=== PATIENT | female | born 1990 | race Caucasian/White ===

== ENCOUNTER → 2017-01-13 | Outpatient (CLI) | payer MEDICARE ==
[2015-10-24 12:45] VITALS: BP 119/66
--- NOTE | 2017-01-13 10:03 | KCIC ---
EXAM: Abdomen sonogram. HISTORY: Right upper quadrant pain. TECHNIQUE: Sonographic imaging of the abdomen was performed. COMPARISON: None. FINDINGS: The liver is normal in size. No focal hepatic lesion is seen. The common bile duct is normal in caliber. The gallbladder is unremarkable. The right kidney is unremarkable. The pancreas, inferior vena cava and aorta are partially obscured due to bowel gas. There is a gravid uterus containing a fetus with a heart rate of 136 bpm. There is an anterior placenta. IMPRESSION: 1. Unremarkable abdomen sonogram, with limited motion of the pancreas, aorta and inferior vena cava due to bowel gas. 2. Intrauterine fetus with a heart rate of 136 bpm, not formally assessed on the current exam. Electronically signed by: Nadira Knowles MD (01/13/2017 9:58 AM)
== END | disposition home or self-care (01) ==
LOC: KCIC US 08:58
PROVIDERS: ATTEND Obstetrics & Gynecology
DX: O26.893 Other specified pregnancy related conditions, third trimester (principal); R10.11 Right upper quadrant pain; Z3A.28 28 weeks gestation of pregnancy
CPT/HCPCS: 76705

== ENCOUNTER 2020-03-13 11:00 | Emergency (ER) | payer MEDICARE, MEDICAID ==
[~2020-03-13] VITALS: Ht 152.4 cm; Wt 47.0 kg
[2020-03-13 11:55] LABS: BILIRUBIN,URINE NEGATIVE (NEG); CLARITY,URINE CLOUDY; COLOR,URINE YELLOW; NITRITE,URINE POSITIVE (NEG); PH,URINE 7.5 (<5.0-8.0); PROTEIN,URINE NEGATIVE (NEG-TRACE); UROBILINOGEN,URINE 0.2 mg/dL (0.2 mg/dL)
[2020-03-13] MEDS ORDERED: cefTRIAXone IM 250 MG VIAL IM ONE (12:00)
[2020-03-13] MEDS ORDERED: AZITHROMYCIN 250 MG TABLET. PO ONE (12:00)
[2020-03-13] MEDS ORDERED: MULTIVIT INFUSN,ADULT 4,VIT K 10 ML, THIAMINE INJ 100 MG, FOLIC ACID INJ 1 MG in IV NOR... IV ONE (12:00)
[2020-03-13] MEDS ORDERED: ONDANSETRON PF 4 MG/2 ML VIAL. IV ONE (12:00)
[2020-03-13 12:03] LABS: BARBITURATES NEG (NEG); BENZODIAZEPINES NEG (NEG); CANNABINOIDS NEG (NEG); COCAINE NEG (NEG); METHADONE NEG (NEG); OPIATES NEG (NEG); PHENCYCLIDINE NEG (NEG)
[2020-03-13 12:04] LABS: AMPHETAMINE/METHAMPHETAMINE POS (NEG)
[2020-03-13 12:06] LABS: BACTERIA,URINE MANY /HPF (0-FEW); SQUAMOUS EPITHELIAL CELL,UR MOD /LPF
--- NOTE | 2020-03-13 12:34 | PHYS DOC ---
Past Medical History Past Medical History: Alcoholism, Other Additional Past Medical Histor: IV meth use Past Surgical History: No Surgical History, Additional Past Surgical Histo: Smoking Status: Current Every Day Smoker Alcohol Use: None Drug Use: Methamphetamine Social History Narrative: LAST USE YESTRDAY General Adult EDM: Chief Complaint: WITHDRAWL HPI: HPI: Patient is a 30 year old female who presents to the emergency department with complaints of being in withdrawal from methamphetamines and alcohol. Patient states that her symptoms are nausea, an intermittent headache, and feeling like her muscles are twitching. She reports that [facility] and was sent here to be evaluated. She reports that she last drank heavily on the evening of the and last ate some meth at 6:00 on March 122019. She also reports concerns of sexually transmitted infections consisting of gonorrhea and syphilis. Patient states that she recently had unprotected intercourse with a man who told him that he had both of these conditions. She denies any rashes, dysuria, hematuria, low back pain, or increased urinary frequency. She states she has had some irregular vaginal discharge but denies any vaginal odor or vaginal bleeding. She denies any pain at this time. Review of Systems: Review of Systems: Constitutional: Denies fever or chills. [] HENT: Denies nasal congestion or sore throat. [] Respiratory: Denies cough or shortness of breath. [] Cardiovascular: Denies chest pain or edema. [] GI: Denies abdominal pain, vomiting, or diarrhea; see HPI : Denies dysuria; see HPI. [] Musculoskeletal: Denies back pain or joint pain; see HPI. [] Integument: Denies rash. [] Neurologic: Denies headache, focal weakness or sensory changes. [] Psychiatric: Denies depression or anxiety. [] Heart Score: Risk Factors: Risk Factors: DM, Current or recent (<one month) smoker, HTN, HLP, family history of CAD, obesity. Risk Scores: Score 0 - 3: 2.5% MACE over next 6 weeks - Discharge Home Score 4 - 6: 20.3% MACE over next 6 weeks - Admit for Clinical Observation Score 7 - 10: 72.7% MACE over next 6 weeks - Early Invasive Strategies Current Medications: Current Medications Medications (Trade) Dose Ordered Sig/Kaitlynn Start Time Stop Time Status Last Admin Dose Admin Azithromycin (Zithromax) 1,000 mg 1X ONCE 03/13/20 12:00 03/13/20 12:10 DC Ceftriaxone Sodium (Rocephin Im) 250 mg 1X ONCE 03/13/20 12:00 03/13/20 12:10 DC Multivitamins 10 ml/Thiamine HCl 100 mg/Folic Acid 1 mg/Sodium Chloride 1,011.2 ml @ 1,000.088 mls/hr 1X ONCE 03/13/20 12:00 03/13/20 13:00 Ondansetron HCl (Zofran) 4 mg 1X ONCE 03/13/20 12:00 03/13/20 12:10 DC Allergies: Allergies: Allergies Coded Allergies Type Severity Reaction Last Updated Verified acetaminophen Allergy Intermediate 10/24/15 Yes haloperidol Allergy Intermediate 10/24/15 Yes hydrocodone Allergy Intermediate 10/24/15 Yes Physical Exam: PE: Constitutional: Well developed, well nourished, no acute distress, non-toxic appearance. HENT: Normocephalic, atraumatic, bilateral external ears normal, nose normal; dry mucous membranes Eyes: PERRLA, EOMI, conjunctiva normal, no discharge. Neck: Normal range of motion, no stridor. Cardiovascular: Heart rate regular rhythm Lungs & Thorax: Respirations even and unlabored, no retractions, no respiratory distress, lungs clear throughout all angel Pelvic Exam: Slunk Skinner present Tayler MCKINNEY Abdomen: Nontender, soft External Genitalia: Normal Skin Speculum: Normal vaginal mucosa, thick white cervical discharge Bimanual: No adnexal masses or tenderness, No CMT Skin: Warm, dry, no erythema, no rash. Extremities: No cyanosis, ROM intact, no edema. Neurologic: Alert and oriented X 3, no focal deficits noted. Psychologic: Affect normal, judgement normal, mood anxious Current Patient Data: Labs: Laboratory Tests Test 03/13/20 11:13 03/13/20 11:20 Urine Collection Type Unknown Urine Color Yellow Urine Clarity Cloudy Urine pH 7.5 (<5.0-8.0) Urine Specific [place] 1.010 (1.000-1.030) Urine Protein Negative mg/dL (NEG-TRACE) Urine Glucose (UA) Negative mg/dL (NEG) Urine Ketones (Stick) Negative mg/dL (NEG) Urine Blood Negative (NEG) Urine Nitrite Positive (NEG) Urine Bilirubin Negative (NEG) Urine Urobilinogen Dipstick 0.2 mg/dL (0.2 mg/dL) Urine Leukocyte Esterase Small (NEG) Urine RBC 1-2 /HPF (0-2) Urine WBC 11-20 /HPF (0-4) Urine Squamous Epithelial Cells Mod /LPF Urine Bacteria Many /HPF (0-FEW) Urine Opiates Screen Neg (NEG) Urine Methadone Screen Neg (NEG) Urine Barbiturates Neg (NEG) Urine Phencyclidine Screen Neg (NEG) Urine Amphetamine/Methamphetamine Pos (NEG) Urine Benzodiazepines Screen Neg (NEG) Urine Cocaine Screen Neg (NEG) Urine Cannabinoids Screen Neg (NEG) Urine Ethyl Alcohol Neg (NEG) POC Urine HCG, Qualitative Hcg negative (Negative) Vital Signs: Vital Signs Date Time Temp Pulse Resp B/P (MAP) Pulse Ox O2 Delivery O2 Flow Rate FiO2 03/13/20 11:15 98.3 95 18 111/81 (91) 99 Room Air 98.3 EKG: EKG: [] Radiology/Procedures: Radiology/Procedures: [] Course & Med Decision Making: Course & Med Decision Making Pertinent Labs and Imaging studies reviewed. (See chart for details) 30-year-old female presents to the emergency department with concerns of a sexually transmitted infection, methamphetamine withdrawal symptoms, and alcohol withdrawal symptoms. Work-up included labs, IV fluids, Ativan, and a pelvic exam. CBC is unremarkable, CMP reveals a magnesium of 2.56 and total protein of 8.3 otherwise unremarkable; UA is positive for nitrites, 11-20 white blood cells, and many bacteria; UDS is positive for amphetamines otherwise unremarkable; alcohol level is less than 10, salicylate and acetaminophen levels are negative. Patient was given a banana bag, 1 mg of Ativan IV, and 4 mg of Zofran. She reported feeling better after these medications. Patient was treated prophylactically with 250 mg of IM Rocephin, and 1 g of PO Zithromax. Patient was instructed to avoid having intercourse until the results of gonorrhea and chlamydia testing are available, patient was notified that these results would not be available for 48 hours. If one or both of these tests is positive, patient needs to refrain from intercourse for approximately 1 week following the treatment of any current partners. Prescriptions written for Keflex 500 mg p.o. twice daily x7 days for treatment of urinary tract infection and Flagyl 500 mg p.o. twice daily x7 days for treatment of bacterial vaginosis. Patient discharged back to [facility] for drug and alcohol rehabilitation. Patient verbalized an understanding of home care, medications, follow-up, and return to ED instructions and was in agreement with the plan of care. [] Toi Disclaimer: Dragon Disclaimer: This electronic medical record was generated, in whole or in part, using a voice recognition dictation system. Departure Departure Impression: Primary Impression: Withdrawal from methamphetamine Additional Impressions: UTI (urinary tract infection) Qualified Codes: N39.0 - Urinary tract infection, site not specified Alcohol withdrawal Qualified Codes: F10.230 - Alcohol dependence with withdrawal, uncomplicated Bacterial vaginosis Contact with and (suspected) exposure to infections with a predominantly sexual mode of transmission Disposition: HOME, SELF-CARE Condition: STABLE Referrals: UNKNOWN PCP NAME (PCP) Patient Instructions: Alcohol Withdrawal, [id number], Bacterial Vaginosis, [id number], Methamphetamine Abuse, Complications, Sexually Transmitted Disease, [id number], Urinary Tract Infection, [id number] Additional Instructions: Fill prescription(s) and use as directed. Avoid bladder irritants such as caffeine, carbonation, and spicy foods. Increase clear fluids. I recommend that you go to your local health department for comprehensive sexually transmitted disease testing. You have been treated for a suspected gonorrhea and chlamydia. Avoid having intercourse until the results of gonorrhea and chlamydia testing are available, these results will not be available for 48 hours. If one or both of these tests is positive, you need to refrain from intercourse for approximately 1 week following the treatment of any current partners. Follow-up with your primary care doctor if symptoms persist, return to ER if symptoms worsen. Scripts Cephalexin (KEFLEX) 500 Mg Capsule 500 MG PO BID for 7 Days, #14 CAP 0 Refills Prov: JED MORENO APRN 03/13/20 Metronidazole (FLAGYL) 500 Mg Tablet 1 TAB PO BID, #14 TAB 0 Refills Prov: JED MORENO APRN 03/13/20 Justicifation of Admission Dx: Justifications for Admission: Justification of Admission Dx: N/A JED MORENO STRUCTURAL IRON ERECTOR Mar 13, 2020 12:34
[2020-03-13 13:30] LABS: BASO # 0.1 x10^3/uL (0.0-0.2); BASO % 1 % (0-3); EOS # 0.7 x10^3/uL (0.0-0.7); EOS % 6 % (0-3); HEMATOCRIT 43.1 % (36.0-47.0); HEMOGLOBIN 14.4 g/dL (12.0-15.5); LYMPH # 3.5 x10^3/uL (1.0-4.8); LYMPH % 28 % (24-48); MEAN CORPUSCULAR HEMOGLOBIN 31 pg (25-35); MEAN CORPUSCULAR HGB CONC 33 g/dL (31-37); MEAN CORPUSCULAR VOLUME 92 fL (79-100); MONO # 0.9 x10^3/uL (0.0-1.1); MONO % 8 % (0-9); NEUT # 7.4 x10^3/uL (1.8-7.7); NEUT % 58 % (31-73); PLATELET COUNT 556 x10^3/uL (140-400); RED BLOOD COUNT 4.71 x10^6/uL (3.50-5.40); WHITE BLOOD COUNT 12.7 x10^3/uL (4.0-11.0)
[2020-03-13 13:49] LABS: CALCIUM 9.9 mg/dL (8.5-10.1); CREATININE 0.8 mg/dL (0.6-1.0); GFR 83.1; POTASSIUM 4.8 mmol/L (3.5-5.1)
[2020-03-13 13:52] LABS: ACETAMIN < 2 mcg/ml (10-30); ETHANOL < 10 mg/dL (0-10); SALIC < 2.8 mg/dL (2.8-20.0)
[2020-03-13 13:54] LABS: ALBUMIN 4.1 g/dL (3.4-5.0); MAGNESIUM 2.5 mg/dL (1.8-2.4); TOTAL BILIRUBIN 0.9 mg/dL (0.2-1.0); TOTAL PROTEIN 8.3 g/dL (6.4-8.2)
[2020-03-13] MEDS ORDERED: cefTRIAXone IV Push 1 GM VIAL. IVP ONE (15:00)
[2020-03-13] MEDS ORDERED: CEPH-264 PO (15:40)
[2020-03-13] MEDS ORDERED: METR500T PO (15:40)
[2020-03-13 16:10] VITALS: BP 107/65
[2020-03-16 23:08] LABS: GC PROBE Negative (Negative)
== END 2020-03-13 16:10 | disposition home or self-care (01) ==
LOC: ER 11:00
DX: F15.93 Other stimulant use, unspecified with withdrawal (principal); F10.239 Alcohol dependence with withdrawal, unspecified; N39.0 Urinary tract infection, site not specified; Y90.0 Blood alcohol level of less than 20 mg/100 ml; N76.0 Acute vaginitis; B96.89 Other specified bacterial agents as the cause of diseases classified elsewhere; F17.200 Nicotine dependence, unspecified, uncomplicated; Z88.5 Allergy status to narcotic agent; Z88.6 Allergy status to analgesic agent; Z88.8 Allergy status to other drugs, medicaments and biological substances
CPT/HCPCS: 36415; 80053; 80307; 80329; 81001; 81025; 83735; 85025; 86592; 87086; 87491; 87591; 96365; 96372; 96375; 99285; G0480; J0696; J2060; J2405; J3411; J3490; J7030; Q0111

== ENCOUNTER 2020-04-16 10:48 | Emergency (ER) | payer MEDICARE, MEDICAID ==
[~2020-04-16] VITALS: Ht 152.4 cm; Wt 55.0 kg
[~2020-04-16 10:48] MED LIST: CEPH-264 PO; METR500T PO
[2020-04-16 11:13] VITALS: BP 105/58
[2020-04-16] MEDS ORDERED: NAPR-514 PO (11:31)
[2020-04-16] MEDS ORDERED: LORA0.5T96 PO (11:31)
[2020-04-16] MEDS ORDERED: PENI500T PO (11:31)
--- NOTE | 2020-04-16 11:32 | PHYS DOC ---
Past Medical History Past Medical History: Alcoholism, Anxiety, Other Additional Past Medical Histor: IV meth use, PTSD Past Surgical History: No Surgical History, Additional Past Surgical Histo: Smoking Status: Current Every Day Smoker Alcohol Use: None Drug Use: Methamphetamine Social History Narrative: hx of methamphetamine use General Adult EDM: Chief Complaint: DENTAL PROBLEM HPI: HPI: Patient is a 30 year old female who presents to the emergency department with complaints of increased dental pain in the right upper quadrant since last night. Patient reports a history of dental caries and broken teeth in this area. She denies any fever, dental abscess, drainage, facial swelling, fever, nausea, or vomiting. The patient also complains of having increased problems with her anxiety recently. She has been staying at [facility] for over 30 days for drug and alcohol program and recently received her sentence for legal troubles. Patient states she has been having a lot of anxiety over the last 24 hours as a result of this. Patient states in the past she is taking Ativan and that helps to reduce her anxiety. She requested a prescription for Ativan. She denies any suicidal or homicidal ideations. She denies any recent exposure to anyone with known COVID. Patient states she is also had some nasal congestion for the last few weeks. She currently rates her pain a 10 out of 10 on the pain scale, she denies any alleviating or exacerbating factors. Review of Systems: Review of Systems: Constitutional: Denies fever or chills. [] HENT: Reports nasal congestion; see HPI Respiratory: Denies cough or shortness of breath. [] Musculoskeletal: Denies back pain or joint pain. [] Integument: Denies rash. [] Neurologic: Denies headache Psychiatric: Denies depression or anxiety. [] Heart Score: Risk Factors: Risk Factors: DM, Current or recent (<one month) smoker, HTN, HLP, family history of CAD, obesity. Risk Scores: Score 0 - 3: 2.5% MACE over next 6 weeks - Discharge Home Score 4 - 6: 20.3% MACE over next 6 weeks - Admit for Clinical Observation Score 7 - 10: 72.7% MACE over next 6 weeks - Early Invasive Strategies Allergies: Allergies: Allergies Coded Allergies Type Severity Reaction Last Updated Verified acetaminophen Allergy Intermediate 10/24/15 Yes haloperidol Allergy Intermediate 10/24/15 Yes hydrocodone Allergy Intermediate 10/24/15 Yes Physical Exam: PE: Constitutional: Well developed, well nourished, no acute distress, non-toxic appearance, anxious. [] HENT: Normocephalic, atraumatic, bilateral external ears normal, oropharynx moist, nose normal; posterior molars in the right upper quadrant have diffuse decay, no visible or palpable dental abscess, no gingival edema; mild erythema of the gingiva in the posterior right upper quadrant Eyes: PERRLA, EOMI, conjunctiva normal, no discharge. [] Neck: Normal range of motion, supple, no stridor. [] Cardiovascular:Heart rate regular rhythm Lungs & Thorax: Respirations even and unlabored, no retractions, no respiratory distress Skin: Warm, dry, no erythema, no rash. [] Extremities: No cyanosis, ROM intact, no edema. [] Neurologic: Alert and oriented X 3, normal motor function, normal sensory function, no focal deficits noted. [] Psychologic: Affect anxious, judgement normal, mood normal. [] Current Patient Data: Vital Signs: Vital Signs Date Time Temp Pulse Resp B/P (MAP) Pulse Ox O2 Delivery O2 Flow Rate FiO2 04/16/20 11:13 97.7 87 16 105/58 (74) 97 Room Air 97.7 EKG: EKG: [] Radiology/Procedures: Radiology/Procedures: [] Course & Med Decision Making: Course & Med Decision Making Pertinent Labs and Imaging studies reviewed. (See chart for details) [] Dragon Disclaimer: Dragon Disclaimer: This electronic medical record was generated, in whole or in part, using a voice recognition dictation system. Departure Departure Impression: Primary Impression: Dentalgia Additional Impressions: Severe dental caries Anxiety Disposition: 01 HOME, SELF-CARE Condition: STABLE Referrals: Sita HELLER MD (PCP) Patient Instructions: Anxiety and Panic Attacks, [id number], Dental Caries, Dental Pain, [id number] Additional Instructions: Fill prescription(s) and use as directed. Follow up with dentist using the referral list provided. Return to the ER if symptoms worsen. Scripts Lorazepam (ATIVAN) 0.5 Mg Tablet 0.5 MG PO TID PRN for ANXIETY for 2 Days, #6 TAB 0 Refills Prov: JED MORENO MANIFOLD OPERATOR 04/16/20 Naproxen (NAPROXEN) 500 Mg Tablet 1 TAB PO BID PRN for PAIN for 10 Days, #20 TAB 0 Refills Prov: JED MORENO APRN 04/16/20 Penicillin V Potassium (PENICILLIN V POTASSIUM) 500 Mg Tablet 1 TAB PO QID for 10 Days, #40 TAB 0 Refills Prov: JED MORENO APRN 04/16/20 Justicifation of Admission Dx: Justifications for Admission: Justification of Admission Dx: N/A JED MORENO APRN Apr 16, 2020 11:32
== END 2020-04-16 11:43 | disposition home or self-care (01) ==
LOC: ER 10:48
DX: K02.9 Dental caries, unspecified (principal); K08.89 Other specified disorders of teeth and supporting structures; R10.11 Right upper quadrant pain; F41.9 Anxiety disorder, unspecified; R09.81 Nasal congestion; F10.10 Alcohol abuse, uncomplicated; F19.90 Other psychoactive substance use, unspecified, uncomplicated; F17.200 Nicotine dependence, unspecified, uncomplicated; Z98.890 Other specified postprocedural states
CPT/HCPCS: 99284

== ENCOUNTER → 2020-06-29 | Outpatient (CLI) | payer MEDICARE, MEDICAID ==
[~2020-06-29] MED LIST changes: +LORA0.5T96 PO; +NAPR-514 PO; +PENI500T PO
== END ==
LOC: LAB 14:04
PROVIDERS: ATTEND Obstetrics & Gynecology
DX: Z20.2 Contact with and (suspected) exposure to infections with a predominantly sexual mode of transmission (principal)
CPT/HCPCS: 36415; 86592

== ENCOUNTER → 2020-07-13 | Outpatient (CLI) | payer MEDICARE, MEDICAID ==
[2020-07-14 01:10] LABS: HEMOGLOBIN A1C 5.5 % (4.8-5.6)
== END ==
LOC: LAB 11:42
PROVIDERS: ATTEND Family Medicine
DX: Z13.1 Encounter for screening for diabetes mellitus (principal); Z83.3 Family history of diabetes mellitus
CPT/HCPCS: 36415; 83036

== ENCOUNTER → 2020-07-24 | Outpatient (CLI) | payer MEDICARE, MEDICAID ==
[2020-07-24 11:35] LABS: BASO # 0.1 x10^3/uL (0.0-0.2); BASO % 1 % (0-3); EOS # 0.6 x10^3/uL (0.0-0.7); EOS % 5 % (0-3); HEMATOCRIT 39.2 % (36.0-47.0); HEMOGLOBIN 13.3 g/dL (12.0-15.5); LYMPH # 2.8 x10^3/uL (1.0-4.8); LYMPH % 25 % (24-48); MEAN CORPUSCULAR HEMOGLOBIN 30 pg (25-35); MEAN CORPUSCULAR HGB CONC 34 g/dL (31-37); MEAN CORPUSCULAR VOLUME 89 fL (79-100); MONO # 0.8 x10^3/uL (0.0-1.1); MONO % 7 % (0-9); NEUT # 6.9 x10^3/uL (1.8-7.7); NEUT % 62 % (31-73); PLATELET COUNT 403 x10^3/uL (140-400); RED BLOOD COUNT 4.38 x10^6/uL (3.50-5.40); WHITE BLOOD COUNT 11.2 x10^3/uL (4.0-11.0)
[2020-07-24 11:55] LABS: ALBUMIN/GLOBULIN RATIO 1.1 (1.0-1.7); CALCIUM 9.2 mg/dL (8.5-10.1); CREATININE 0.8 mg/dL (0.6-1.0); GFR 83.1; TOTAL BILIRUBIN 0.4 mg/dL (0.2-1.0); TOTAL PROTEIN 7.8 g/dL (6.4-8.2)
== END ==
LOC: LAB 11:01
PROVIDERS: ATTEND Family Medicine
DX: R63.5 Abnormal weight gain (principal)
CPT/HCPCS: 36415; 80053; 84443; 85025

== ENCOUNTER → 2020-08-17 | Outpatient (CLI) | payer MEDICARE, MEDICAID ==
--- NOTE | 2020-08-17 12:34 | KCIC ---
EXAM: Bilateral wrists, 3 views. HISTORY: Pain. COMPARISON: None. FINDINGS: 3 views of both wrists are obtained. There is no fracture, dislocation or subluxation. The alignment and joint spaces are unremarkable. There is a metallic BB within the dorsal right wrist sof t tissues. IMPRESSION: No acute osseous finding. Electronically signed by: Nadira Knowles MD (08/17/2020 12:31 PM) [id number]
== END ==
LOC: KCIC 10:52
PROVIDERS: ATTEND Family Medicine
DX: S60.85 Superficial foreign body of wrist (principal); X58.XXXS Exposure to other specified factors, sequela
CPT/HCPCS: 73110

== ENCOUNTER → 2021-01-26 | Outpatient (CLI) | payer MEDICARE, MEDICAID ==
[2021-01-26 14:04] LABS: CREATININE 0.9 mg/dL (0.6-1.0); GFR 72.6; POTASSIUM 3.9 mmol/L (3.5-5.1); TOTAL BILIRUBIN 0.3 mg/dL (0.2-1.0)
[2021-01-26 14:10] LABS: CALCIUM 8.9 mg/dL (8.5-10.1)
[2021-01-27 15:13] LABS: CERULOPLASMIN 27.4 mg/dL (19.0-39.0)
[2021-01-28 06:16] LABS: HCV ULTRA QUANT PCR HCV Not Detected IU/mL (.)
== END ==
LOC: LAB 12:19
PROVIDERS: ATTEND Internal Medicine Gastroenterology
DX: K76.0 Fatty (change of) liver, not elsewhere classified (principal)
CPT/HCPCS: 80053; 82390; 86038; 86706; 87340; 87522; 87902